=== PATIENT | female | born 1945 | race Caucasian/White ===

== ENCOUNTER 2017-02-14 10:26 | Observation (INO) | payer OTHER ==
[~2017-02-14] VITALS: Ht 162.6 cm; Wt 99.8 kg
[2017-02-14] MEDS ORDERED: ASPirin 81 mg TAB PO ONE (11:30)
[2017-02-14 12:16] LABS: INR 1.01 (0.9-1.15); Partial Thromboplastin Time 27.7 sec (22.64-33.71)
[2017-02-14 12:56] LABS: BUN/Creatinine Ratio 30.8; Lymphocytes % (auto) 17.8 % (10.0-50.0); Neutrophils % (auto) 73.3 % (37.0-80.0); Potassium 4.2 mmol/L (3.5-5.1); White Blood Cell 5.6 10^3/uL (4.4-10.8)
[2017-02-14 12:57] LABS: Albumin 3.7 g/dL (3.4-5.0); Basophils # (auto) 0 uL; Basophils % (auto) 0.7 % (0.0-2.0); Bilirubin, Total 0.4 mg/dL (0.2-1.0); Calcium 8.5 mg/dL (8.5-10.1); Eosinophils # (auto) 0.1 uL; Eosinophils % (auto) 2.2 % (0.0-7.0); Hematocrit 44.1 % (36.0-46.0); Hemoglobin 15.4 g/dL (12.2-16.2); Magnesium 2.2 mg/dL (1.6-2.6); Mean Corpuscular Volume 86.1 fL (80.0-100.0); Monocytes # (auto) 0.3 uL; Neutrophils # (auto) 4.1 uL; Nucleated Red Blood Cells % 0.1 %; Total Protein 7.5 g/dL (6.4-8.2)
[2017-02-14 12:58] LABS: Mean Corpuscular Hgb Conc. 34.9 g/dL (32.0-36.0); Mean Platelet Volume 7.3 fL (6.9-10.8); Platelet Count (auto) 218 10^3/uL (140-450); Red Cell Distribution Width 13.9 % (11.8-14.3)
[2017-02-14 15:00] VITALS: BP 154/81
== END 2017-02-14 15:37 | disposition home or self-care (01) | DRG 310 ==
LOC: EDBD 10:26 → ER 10:26 → OVERFLOW 11:20 → ER 15:37
PROVIDERS: ADMIT Family Medicine; ATTEND Family Medicine
DX: R00.2 Palpitations (principal); F12.90 Cannabis use, unspecified, uncomplicated; R06.02 Shortness of breath; Z86.19 Personal history of other infectious and parasitic diseases; Z82.49 Family history of ischemic heart disease and other diseases of the circulatory system; Z83.3 Family history of diabetes mellitus
CPT/HCPCS: 36415; 71010; 80053; 80307; 83735; 84443; 84484; 85025; 85610; 85730; 93005; 99285; G0378